=== PATIENT | male | born 1975 | race Caucasian/White ===

== ENCOUNTER 2018-08-03 09:29 | Emergency (ER) | payer MEDICAID ==
[2018-08-03] MEDS ORDERED: ZIPRASIDONE MESYLATE 20 MG VIAL IM PRN (10:19)
[2018-08-03] MEDS ORDERED: LORazepam 1 MG TAB PO ONE (10:21)
[2018-08-03 10:39] VITALS: BP 133/89
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
== END 2018-08-03 10:50 | disposition short-term general hospital (02) ==
LOC: CED 09:29
DX: F30.9 Manic episode, unspecified (principal); R07.0 Pain in throat
CPT/HCPCS: 96372-ER; J3486